=== PATIENT | female | born 1990 ===

== ENCOUNTER 2022-02-13 00:50 | Inpatient (IN) | payer OTHER ==
[2022-02-13 01:46] VITALS: BMI 21.2
[2022-02-13] MEDS ORDERED: ONDANSETRON *ODT* 4 MG TABLET SL PRN (02:00)
[2022-02-13] MEDS ORDERED: MAG HYDROX/AL HYDROX/SIMETH 30 ML UNIT-DOSE CUP PO PRN (02:00)
[2022-02-13] MEDS ORDERED: ACETAMINOPHEN 325 MG TABLET (FP) PO PRN (02:00)
[2022-02-13] MEDS ORDERED: BISMUTH SUBSALICYLATE 524 MG/30 ML PO PRN (02:00)
[2022-02-13] MEDS ORDERED: MAGNESIUM HYDROX 2400MG/30ML ORAL SUSPENSION 30 ML CUP PO PRN (02:00)
[2022-02-13] MEDS ORDERED: MAGNESIUM CITRATE 300 ML BOTTLE PO PRN (02:00)
[2022-02-13] MEDS ORDERED: LOPERAMIDE HCL 2 MG CAPSULE PO PRN (02:00)
[2022-02-13] MEDS ORDERED: DICYCLOMINE HCL 10 MG CAPSULE PO PRN (02:00)
[2022-02-13] MEDS ORDERED: BENZOCAINE/MENTHOL (CHLORASEPTIC ) LOZENGE MM PRN (02:00)
[2022-02-13] MEDS ORDERED: IBUPROFEN 600 MG TABLET (FP) PO PRN (02:00)
[2022-02-13] MEDS: diazePAM 5 MG TABLET PO PRN ×3 (03:03→21:08)
[2022-02-13] MEDS: METHOCARBAMOL 500 MG TABLET PO PRN ×3 (03:06→22:25)
[2022-02-13] MEDS: ACETAMINOPHEN 325 MG TABLET (FP) PO PRN (03:06)
[2022-02-13] MEDS: diazePAM 5 MG TABLET PO SCH ×3 (06:07→17:04)
[2022-02-13] MEDS ORDERED: methaDONE HCL 10 MG TABLET PO SCH (09:15)
[2022-02-13] MEDS ORDERED: methaDONE HCL 10 MG TABLET ONE (09:29)
[2022-02-13] MEDS ORDERED: methaDONE HCL 40 MG DISPERSABLE TABLET ONE (09:29)
[2022-02-13] MEDS: IBUPROFEN 400 MG TABLET (FP) PO PRN (10:10)
[2022-02-13] MEDS: PRENATAL VITAMINS W/ FOLIC ACID TABLET (FP) PO SCH (11:37)
[2022-02-13] MEDS: NICOTINE 14 MG/24 HOURS TOPICAL PATCH TD SCH (11:37)
[2022-02-13] MEDS: hydrOXYzine PAMOATE 25 MG CAPSULE (FP) PO PRN ×2 (18:21→22:25)
[2022-02-13] MEDS: MELATONIN 5 MG TABLETS PO SCH (22:24)
[2022-02-13] MEDS: THIAMINE HCL 100 MG TABLET (FP) PO SCH (22:24)
[2022-02-14] MEDS: diazePAM 5 MG TABLET PO SCH ×4 (00:05→22:52)
[2022-02-14] MEDS ORDERED: methaDONE HCL 40 MG DISPERSABLE TABLET ONE (04:25)
[2022-02-14] MEDS ORDERED: methaDONE HCL 10 MG TABLET ONE (04:25)
[2022-02-14] MEDS: METHOCARBAMOL 500 MG TABLET PO PRN ×2 (09:23→19:09)
[2022-02-14] MEDS: PRENATAL VITAMINS W/ FOLIC ACID TABLET (FP) PO SCH (10:53)
[2022-02-14] MEDS: NICOTINE 14 MG/24 HOURS TOPICAL PATCH TD SCH (10:53)
[2022-02-14] MEDS: hydrOXYzine PAMOATE 25 MG CAPSULE (FP) PO PRN ×2 (10:55→19:09)
[2022-02-14] MEDS: diazePAM 5 MG TABLET PO PRN ×2 (10:55→17:30)
[2022-02-14] MEDS: NICOTINE POLACRILEX 2 MG GUM BUC PRN ×3 (10:57→19:50)
[2022-02-14 11:45] LABS: HEMATOCRIT 39.4 % (32.4-45.2); MCH 29.4 pg (25.7-33.7); MEAN CELL VOLUME 89.2 fl (80-96); MEAN PLT VOLUME 8.9 fl (7.5-11.1); PLATELET COUNT 308 10^3/uL (134-434); RBC 4.42 M/mm3 (3.60-5.2); RDW 14.5 % (11.6-15.6)
[2022-02-14 12:53] LABS: CALCIUM 10.1 mg/dL (8.5-10.1)
[2022-02-14 12:54] LABS: ALBUMIN 4.2 g/dl (3.4-5.0); BLOOD UREA NITROGEN 5.6 mg/dL (7-18)
[2022-02-14 12:57] LABS: CREATININE 0.8 mg/dL (0.55-1.3)
[2022-02-14 12:58] LABS: BILIRUBIN,TOTAL 0.8 mg/dL (0.2-1); TOT PROT 7.8 g/dl (6.4-8.2)
[2022-02-14] MEDS: ACETAMINOPHEN 325 MG TABLET (FP) PO PRN (17:32)
[2022-02-14] MEDS: NICOTINE 10 MG CARTRIDGE (INHALER) IH PRN ×2 (19:51→22:54)
[2022-02-14] MEDS: MELATONIN 5 MG TABLETS PO SCH (22:52)
[2022-02-14] MEDS: THIAMINE HCL 100 MG TABLET (FP) PO SCH (22:52)
[2022-02-15] MEDS ORDERED: methaDONE HCL 10 MG TABLET ONE (04:00)
[2022-02-15] MEDS ORDERED: methaDONE HCL 40 MG DISPERSABLE TABLET ONE (04:01)
[2022-02-15] MEDS: hydrOXYzine PAMOATE 25 MG CAPSULE (FP) PO PRN ×2 (05:45→17:58)
[2022-02-15] MEDS: diazePAM 5 MG TABLET PO SCH ×2 (05:47→17:41)
[2022-02-15] MEDS: NICOTINE 10 MG CARTRIDGE (INHALER) IH PRN ×4 (06:19→22:24)
[2022-02-15] MEDS: METHOCARBAMOL 500 MG TABLET PO PRN ×2 (06:19→22:23)
[2022-02-15] MEDS: diazePAM 5 MG TABLET PO PRN ×3 (08:48→22:22)
[2022-02-15] MEDS: NICOTINE 14 MG/24 HOURS TOPICAL PATCH TD SCH (09:11)
[2022-02-15] MEDS: NICOTINE POLACRILEX 2 MG GUM BUC PRN ×4 (09:11→22:24)
[2022-02-15] MEDS: PRENATAL VITAMINS W/ FOLIC ACID TABLET (FP) PO SCH (10:20)
[2022-02-15] MEDS: IBUPROFEN 400 MG TABLET (FP) PO PRN (10:21)
[2022-02-15] MEDS: THIAMINE HCL 100 MG TABLET (FP) PO SCH (22:21)
[2022-02-15] MEDS: MELATONIN 5 MG TABLETS PO SCH (22:21)
[2022-02-16] MEDS ORDERED: methaDONE HCL 10 MG TABLET ONE (04:13)
[2022-02-16] MEDS ORDERED: methaDONE HCL 40 MG DISPERSABLE TABLET ONE (04:13)
[2022-02-16] MEDS: hydrOXYzine PAMOATE 25 MG CAPSULE (FP) PO PRN ×3 (05:49→20:07)
[2022-02-16] MEDS ORDERED: diazePAM 5 MG TABLET PO ONE (06:00)
[2022-02-16] MEDS: NICOTINE 10 MG CARTRIDGE (INHALER) IH PRN ×4 (06:01→22:37)
[2022-02-16] MEDS: METHOCARBAMOL 500 MG TABLET PO PRN ×3 (06:01→20:07)
[2022-02-16] MEDS: NICOTINE POLACRILEX 2 MG GUM BUC PRN ×4 (06:01→22:37)
[2022-02-16] MEDS ORDERED: INSULIN SLIDING SCALE (NOVOLOG) 1 VIAL SQ ONE (06:57)
[2022-02-16] MEDS: NICOTINE 14 MG/24 HOURS TOPICAL PATCH TD SCH (10:31)
[2022-02-16] MEDS: PRENATAL VITAMINS W/ FOLIC ACID TABLET (FP) PO SCH (10:31)
[2022-02-16] MEDS: diazePAM 5 MG TABLET PO PRN ×2 (12:50→17:37)
[2022-02-16] MEDS: ACETAMINOPHEN 325 MG TABLET (FP) PO PRN (17:38)
[2022-02-16] MEDS: THIAMINE HCL 100 MG TABLET (FP) PO SCH (22:17)
[2022-02-16] MEDS: MIRTAZAPINE 15 MG TABLET (FP) PO SCH (22:17)
[2022-02-16] MEDS: MELATONIN 5 MG TABLETS PO SCH (22:17)
[2022-02-17] MEDS ORDERED: methaDONE HCL 10 MG TABLET ONE (04:13)
[2022-02-17] MEDS ORDERED: methaDONE HCL 40 MG DISPERSABLE TABLET ONE (04:14)
[2022-02-17] MEDS: hydrOXYzine PAMOATE 25 MG CAPSULE (FP) PO PRN ×4 (06:04→22:11)
[2022-02-17] MEDS: diazePAM 5 MG TABLET PO PRN ×3 (06:04→22:10)
[2022-02-17] MEDS: NICOTINE 10 MG CARTRIDGE (INHALER) IH PRN ×4 (06:06→22:12)
[2022-02-17] MEDS: NICOTINE POLACRILEX 2 MG GUM BUC PRN ×4 (06:06→22:12)
[2022-02-17] MEDS: METHOCARBAMOL 500 MG TABLET PO PRN ×2 (06:17→17:42)
[2022-02-17] MEDS: PRENATAL VITAMINS W/ FOLIC ACID TABLET (FP) PO SCH (10:02)
[2022-02-17] MEDS: NICOTINE 14 MG/24 HOURS TOPICAL PATCH TD SCH (10:04)
[2022-02-17] MEDS: MELATONIN 5 MG TABLETS PO SCH (22:10)
[2022-02-17] MEDS: MIRTAZAPINE 15 MG TABLET (FP) PO SCH (22:11)
[2022-02-17] MEDS: THIAMINE HCL 100 MG TABLET (FP) PO SCH (22:11)
[2022-02-18] MEDS ORDERED: methaDONE HCL 40 MG DISPERSABLE TABLET ONE (03:23)
[2022-02-18] MEDS ORDERED: methaDONE HCL 10 MG TABLET ONE (03:23)
[2022-02-18] MEDS: hydrOXYzine PAMOATE 25 MG CAPSULE (FP) PO PRN (05:50)
[2022-02-18] MEDS: NICOTINE POLACRILEX 2 MG GUM BUC PRN (06:22)
[2022-02-18] MEDS: NICOTINE 10 MG CARTRIDGE (INHALER) IH PRN (06:23)
[2022-02-18 09:11] VITALS: BP 112/77; PULSE 99; TEMP 97.3
[2022-02-18] MEDS: PRENATAL VITAMINS W/ FOLIC ACID TABLET (FP) PO SCH (09:12)
[2022-02-18] MEDS: diazePAM 5 MG TABLET PO PRN (09:12)
[2022-02-18] MEDS: METHOCARBAMOL 500 MG TABLET PO PRN (09:12)
[2022-02-18] MEDS: NICOTINE 14 MG/24 HOURS TOPICAL PATCH TD SCH (09:13)
== END 2022-02-18 12:50 | disposition home or self-care (01) | DRG 773 ==
LOC: YASAS 00:50 → Y3N 02:28
PROVIDERS: ADMIT Allergy & Immunology; ATTEND Allergy & Immunology
PROC: HZ2ZZZZ Detoxification Services for Substance Abuse Treatment (ICD-10-PCS; principal; 2022-02-13)
DX: F10.230 Alcohol dependence with withdrawal, uncomplicated (principal); F13.230 Sedative, hypnotic or anxiolytic dependence with withdrawal, uncomplicated; F11.20 Opioid dependence, uncomplicated; F14.20 Cocaine dependence, uncomplicated; F15.20 Other stimulant dependence, uncomplicated; F17.210 Nicotine dependence, cigarettes, uncomplicated; F19.24 Other psychoactive substance dependence with psychoactive substance-induced mood disorder; F98.8 Other specified behavioral and emotional disorders with onset usually occurring in childhood and adolescence; F32.A Depression, unspecified; G40.509 Epileptic seizures related to external causes, not intractable, without status epilepticus; G47.00 Insomnia, unspecified; Z28.310 Unvaccinated for COVID-19; Z88.8 Allergy status to other drugs, medicaments and biological substances
CPT/HCPCS: 36415; 80053; 81025; 85027; 86780; 93005; 93010; C9803-CS; Q0162; U0003; U0005